=== PATIENT | female | born 1935 | race Caucasian/White ===

== ENCOUNTER 2017-07-26 17:53 | Observation (INO) | payer MEDICARE, OTHER ==
[~2017-07-26] VITALS: Ht 165.1 cm; Wt 66.9 kg
[~2017-07-26 17:53] MED LIST: CALC0.5C PO; CIMZ200K SQ; GALA24CA PO; GLIP10TA6 PO; LANTUS2P SQ; MEMA1TAB2 PO; METO5TAB PO; SACC1CAP3 PO; TRAD5TAB PO; TRAZ50TA12 PO; VITA2000 PO
[2017-07-26] MEDS ORDERED: ONDANSETRON HCL 4 MG/2 ML VIAL IVP PRN (18:15)
[2017-07-26] MEDS ORDERED: NALOXONE HCL 0.4 MG/ML AMP IV PUSH PRN (18:15)
[2017-07-26] MEDS ORDERED: ACETAMINOPHEN 325 MG TAB PO PRN ×2 (18:15)
[2017-07-26] MEDS ORDERED: SODIUM CHLORIDE 0.9% FLUSH 10 ML FLUSH IV FLUSH PRN (18:15)
[2017-07-26 20:00] VITALS: BP 119/57; PULSE 83; RESP 20; TEMP 96.7; O2SAT 98
[2017-07-26] MEDS: DOCUSATE SODIUM 50 MG/SENNA 8.6 MG TAB PO SCH (21:00)
[2017-07-26] MEDS ORDERED: GLUCAGON 1 MG/ML VIAL OTHER PRN (22:00)
[2017-07-26] MEDS ORDERED: DEXTROSE 50% IN WATER 50 ML VIAL(D50) IV PUSH PRN (22:00)
[2017-07-27] VITALS (7 sets, daily range): BP systolic 112–129; BP diastolic 51–66; PULSE 80–97; RESP 16–20; TEMP 97.4–98.5; O2SAT 95–99
[2017-07-27] MEDS: SODIUM CHLORIDE 0.9% FLUSH 10 ML FLUSH IV FLUSH SCH ×3 (00:39→22:02)
[2017-07-27] MEDS: SODIUM CHLOR 0.9% 1000 ML INJ 1,000 ML IV SCH ×3 (00:39→15:00)
[2017-07-27] MEDS ORDERED: traZODone HCL 50 MG TAB PO ONE (02:00)
[2017-07-27] MEDS: DOCUSATE SODIUM 50 MG/SENNA 8.6 MG TAB PO SCH ×2 (07:53→22:00)
[2017-07-27] MEDS: INSULIN ASPART SUPPLEMENTAL SCALE SQ SCH ×4 (07:53→21:00)
[2017-07-27 08:25] LABS: AUTOMATED NEUTROPHIL # 2.2 TH/MM3 (1.8-7.7); BASOPHIL % 0.7 % (0.0-2.0); EOSINOPHIL # 0.2 TH/MM3 (0-0.4); EOSINOPHIL % 3.2 % (0.0-4.0); HEMATOCRIT 32.3 % (35.0-46.0); HEMOGLOBIN 10.8 GM/DL (11.6-15.3); LYMPH % 53.5 % (9.0-44.0); LYMPHOCYTE # 3.5 TH/MM3 (1.0-4.8); MEAN CELL VOLUME 86.9 FL (80.0-100.0); MEAN CORPUSCULAR HEMOGLOBIN 28.9 PG (27.0-34.0); MEAN CORPUSCULAR HGB CONC 33.3 % (32.0-36.0); MEAN PLATELET VOLUME 10.1 FL (7.0-11.0); MONO % 8.3 % (0.0-8.0); MONOCYTE # 0.5 TH/MM3 (0-0.9); NEUT % 34.3 % (16.0-70.0); PLATELET COUNT 224 TH/MM3 (150-450); RED BLOOD COUNT 3.71 MIL/MM3 (4.00-5.30); RED CELL DISTRIBUTION WIDTH 13.4 % (11.6-17.2); WHITE BLOOD COUNT 6.4 TH/MM3 (4.0-11.0)
[2017-07-27 08:36] LABS: CHLORIDE 104 MEQ/L (98-107); SODIUM (NA) 135 MEQ/L (136-145)
[2017-07-27 08:42] LABS: CALCIUM 8.6 MG/DL (8.5-10.1)
[2017-07-27 08:43] LABS: ALBUMIN 3.2 GM/DL (3.4-5.0); BICARBONATE 25.3 MEQ/L (21.0-32.0); BLOOD UREA NITROGEN 28 MG/DL (7-18); GLUCOSE,RANDOM 110 MG/DL (74-106)
[2017-07-27 08:46] LABS: ALT (GPT) 18 U/L (10-53); AST (GOT) 15 U/L (15-37); GLOMERULAR FILTRATION RATE 33 ML/MIN (>89)
[2017-07-27 08:48] LABS: TOTAL PROTEIN 7.1 GM/DL (6.4-8.2)
[2017-07-27 08:49] LABS: ALKALINE PHOSPHATASE 72 U/L (45-117)
[2017-07-27] MEDS ORDERED: PILL SPLITTER OTHER PRN (09:00)
[2017-07-27] MEDS ORDERED: NON-FORMULARY DRUG (Saccharomyces Boulardii (Probiotic) 250 MG) PO SCH (09:00)
--- NOTE | 2017-07-27 09:22 | HHI.HP ---
[facility] Physician No Primary Care Physician Admission Diagnosis Diagnoses: Chief Complaint: Weakness Travel History International Travel<30 Days: No Contact w/Intl Traveler <30 Da: No History of Present Illness The patient is an 82-year-old female with a past medical history of Crohn's disease and dementia who presents to the hospital for evaluation of generalized weakness. For the last 2 weeks she has been having weakness and her reportedly stated that his been unable to take care of her since she has been very weak, unable to move, as well as having nausea and vomiting and unable to keep anything down. He has been trying to give her supplements but she reportedly refuses to take them. Patient also has been refusing to take her medications on time and her is worried that he is unable to take good care of her. No fall or trauma, no chest pain or shortness of breath. The patient states that she does not use a walker. She currently denies any symptoms. She does say she is forgetful and is not sure why she is here in the hospital. She says that she has diarrhea but that is at baseline secondary to her Crohn's disease. She has been eating while in the hospital. She has been ambulating without difficulty. No acute concerns from nursing. Review of Systems Except as stated in HPI: all other systems reviewed are Neg Past Family Social History Past Medical History Diabetes Crohn's disease Dementia Past Surgical History Colon resection Cholecystectomy Hysterectomy Tonsillectomy Allergies: Coded Allergies: No Known Allergies (Unverified , 07/26/17) Family History The patient denies pertinent family history. Social History The patient does not smoke or drink. Physical Exam Vital Signs Vital Signs Date Time Temp Pulse Resp B/P (MAP) Pulse Ox O2 Delivery O2 Flow Rate FiO2 07/27/17 00:00 97.7 85 20 114/59 (77) 96 07/26/17 20:00 96.7 83 20 119/57 (77) 98 Physical Exam GENERAL: This is a well-nourished, well-developed patient, in no apparent distress. SKIN: No rashes, ecchymoses or lesions. Cool and dry. HEAD: Atraumatic. Normocephalic. No temporal or scalp tenderness. EYES: Pupils equal round and reactive. Extraocular motions intact. No scleral icterus. No injection or drainage. ENT: Nose without bleeding, purulent drainage or septal hematoma. Throat without erythema, tonsillar hypertrophy or exudate. Uvula midline. Airway patent. NECK: Trachea midline. No JVD or lymphadenopathy. Supple, nontender, no meningeal signs. CARDIOVASCULAR: Regular rate and rhythm without murmurs, gallops, or rubs. RESPIRATORY: Clear to auscultation. Breath sounds equal bilaterally. No wheezes , rales, or rhonchi. GASTROINTESTINAL: Abdomen soft, non-tender, nondistended. No hepato-splenomegaly , or palpable masses. No guarding. MUSCULOSKELETAL: Extremities without clubbing, cyanosis, or edema. No joint tenderness, effusion, or edema noted. NEUROLOGICAL: Awake and alert. Cranial nerves II through XII intact. Some confusion. Motor and sensory grossly within normal limits. Five out of 5 muscle strength in all muscle groups. Normal speech. Laboratory Laboratory Tests Test 07/27/17 06:30 White Blood Count 6.4 Red Blood Count 3.71 Hemoglobin 10.8 Hematocrit 32.3 Mean Corpuscular Volume 86.9 Mean Corpuscular Hemoglobin 28.9 Mean Corpuscular Hemoglobin Concent 33.3 Red Cell Distribution Width 13.4 Platelet Count 224 Mean Platelet Volume 10.1 Neutrophils (%) (Auto) 34.3 Lymphocytes (%) (Auto) 53.5 Monocytes (%) (Auto) 8.3 Eosinophils (%) (Auto) 3.2 Basophils (%) (Auto) 0.7 Neutrophils # (Auto) 2.2 Lymphocytes # (Auto) 3.5 Monocytes # (Auto) 0.5 Eosinophils # (Auto) 0.2 Basophils # (Auto) 0.0 CBC Comment DIFF FINAL Differential Comment Blood Urea Nitrogen 28 Creatinine 1.50 Random Glucose 110 Total Protein 7.1 Albumin 3.2 Calcium Level 8.6 Alkaline Phosphatase 72 Aspartate Amino Transf (AST/SGOT) 15 Alanine Aminotransferase (ALT/SGPT) 18 Total Bilirubin 1.0 Sodium Level 135 Potassium Level 3.7 Chloride Level 104 Carbon Dioxide Level 25.3 Anion Gap 6 Estimat Glomerular Filtration Rate 33 Result Diagram: 07/27/1730 07/27/1730 Caprini VTE Risk Assessment Caprini VTE Risk Assessment: Mod/High Risk (score >= 2) Caprini Risk Assessment Model Point Value = 1 Point Value = 2 Point Value = 3 Point Value = 5 Age 41-60 Minor surgery BMI > 25 kg/m2 Swollen legs Varicose veins or History of unexplained or recurrent spontaneous Oral contraceptives or hormone replacement Sepsis (< 1 month) Serious lung disease, including pneumonia (< 1 month) Abnormal pulmonary function Acute myocardial infarction Congestive heart failure (< 1 month) History of inflammatory bowel disease Medical patient at bed rest Age 61-74 Arthroscopic surgery Major open surgery (> 45 min) Laparoscopic surgery (> 45 min) Malignancy Confined to bed (> 72 hours) Immobilizing plaster cast Central venous access Age >= 75 History of VTE Family history of VTE Factor V Leiden Prothrombin [id number] Lupus anticoagulant Anticardiolipin antibodies Elevated serum homocysteine Heparin-induced thrombocytopenia Other congenital or acquired thrombophilia Stroke (< 1 month) Elective arthroplasty Hip, pelvis, or leg fracture Acute spinal cord injury (< 1 month) Prophylaxis Regimen Total Risk Factor Score Risk Level Prophylaxis Regimen 0-1 Low Early ambulation 2 Moderate Order ONE of the following: *Sequential Compression Device (SCD) *Heparin 5000 units SQ BID 3-4 Higher Order ONE of the following medications: *Heparin 5000 units SQ TID *Enoxaparin/Lovenox 40 mg SQ daily (WT < 150 kg, CrCl > 30 mL/min) *Enoxaparin/Lovenox 30 mg SQ daily (WT < 150 kg, CrCl > 10-29 mL/min) *Enoxaparin/Lovenox 30 mg SQ BID (WT < 150 kg, CrCl > 30 mL/min) AND/OR *Sequential Compression Device (SCD) 5 or more Highest Order ONE of the following medications: *Heparin 5000 units SQ TID (Preferred with Epidurals) *Enoxaparin/Lovenox 40 mg SQ daily (WT < 150 kg, CrCl > 30 mL/min) *Enoxaparin/Lovenox 30 mg SQ daily (WT < 150 kg, CrCl > 10-29 mL/min) *Enoxaparin/Lovenox 30 mg SQ BID (WT < 150 kg, CrCl > 30 mL/min) AND *Sequential Compression Device (SCD) Assessment and Plan Assessment and Plan Weakness The patient reportedly has been weak for the past couple of weeks and has not been eating well. In the hospital she is ambulating well and eating. She denies any bothersome symptoms. - PT/ OT demondals pending. - case management consult requested. - dietary consult for reported failure to thrive. - fall precautions. Diarrhea Chronic, secondary to Crohn's disease. Currently at baseline. - Continue outpatient regimen. Renal insufficiency Unsure of baseline. - Continue IV fluids and avoid nephrotoxins. Anemia Unsure of baseline. - Follow CBC. DM Chronic. - continue long acting insulin with a sliding scale. PPx: SCDs Discussed Condition With Pt, pt's nurse Hosea Brito DO July 27, 2017 09:22
[2017-07-27] MEDS: INSULIN DETEMIR 100 UNITS/ML VIAL SQ SCH (09:53)
[2017-07-27] MEDS: CHOLECALCIFEROL (VIT D3) 1000 UNIT TAB PO SCH (09:53)
[2017-07-27] MEDS: MEMANTINE HCL 10 MG TAB PO SCH ×2 (09:53→22:01)
[2017-07-27] MEDS: GALANTAMINE HYDROBROMIDE 4 MG TAB PO SCH ×2 (10:43→22:01)
[2017-07-27] MEDS: METOCLOPRAMIDE HCL 10 MG TAB PO SCH ×2 (12:56→16:29)
[2017-07-27] MEDS ORDERED: traZODone HCL 50 MG TAB PO SCH (21:00)
[2017-07-28] VITALS: BP 111/62; PULSE 80; RESP 20; TEMP 97.8; O2SAT 98
[2017-07-28 07:36] VITALS: BP 119/59; PULSE 78; RESP 19; TEMP 97.8; O2SAT 96
[2017-07-28] MEDS: INSULIN ASPART SUPPLEMENTAL SCALE SQ SCH ×2 (07:39→12:00)
[2017-07-28] MEDS: SODIUM CHLORIDE 0.9% FLUSH 10 ML FLUSH IV FLUSH SCH (09:00)
[2017-07-28] MEDS: DOCUSATE SODIUM 50 MG/SENNA 8.6 MG TAB PO SCH (09:00)
[2017-07-28] MEDS: METOCLOPRAMIDE HCL 10 MG TAB PO SCH ×2 (10:49→12:00)
[2017-07-28] MEDS: INSULIN DETEMIR 100 UNITS/ML VIAL SQ SCH (10:49)
[2017-07-28 10:50] LABS: AUTOMATED NEUTROPHIL # 2.9 TH/MM3 (1.8-7.7); BASOPHIL # 0.3 TH/MM3 (0-0.2); BASOPHIL % 3.4 % (0.0-2.0); EOSINOPHIL # 0.2 TH/MM3 (0-0.4); EOSINOPHIL % 2.9 % (0.0-4.0); HEMATOCRIT 34.4 % (35.0-46.0); HEMOGLOBIN 11.3 GM/DL (11.6-15.3); LYMPH % 48.5 % (9.0-44.0); LYMPHOCYTE # 3.6 TH/MM3 (1.0-4.8); MEAN CELL VOLUME 88.8 FL (80.0-100.0); MEAN CORPUSCULAR HEMOGLOBIN 29.1 PG (27.0-34.0); MEAN CORPUSCULAR HGB CONC 32.8 % (32.0-36.0); MEAN PLATELET VOLUME 9.2 FL (7.0-11.0); MONO % 6.3 % (0.0-8.0); MONOCYTE # 0.5 TH/MM3 (0-0.9); NEUT % 38.9 % (16.0-70.0); PLATELET COUNT 231 TH/MM3 (150-450); RED BLOOD COUNT 3.88 MIL/MM3 (4.00-5.30); RED CELL DISTRIBUTION WIDTH 13.5 % (11.6-17.2); WHITE BLOOD COUNT 7.5 TH/MM3 (4.0-11.0)
[2017-07-28] MEDS: CHOLECALCIFEROL (VIT D3) 1000 UNIT TAB PO SCH (10:50)
[2017-07-28] MEDS: MEMANTINE HCL 10 MG TAB PO SCH (10:51)
[2017-07-28] MEDS: GALANTAMINE HYDROBROMIDE 4 MG TAB PO SCH (10:51)
[2017-07-28 11:23] LABS: CHLORIDE 111 MEQ/L (98-107); SODIUM (NA) 140 MEQ/L (136-145)
[2017-07-28 11:29] LABS: ALBUMIN 3.3 GM/DL (3.4-5.0); BICARBONATE 21.6 MEQ/L (21.0-32.0); BLOOD UREA NITROGEN 20 MG/DL (7-18); GLUCOSE,RANDOM 197 MG/DL (74-106)
[2017-07-28 11:32] LABS: ALT (GPT) 19 U/L (10-53); AST (GOT) 15 U/L (15-37); GLOMERULAR FILTRATION RATE 36 ML/MIN (>89)
[2017-07-28 11:33] LABS: TOTAL BILIRUBIN ADULT 0.7 MG/DL (0.2-1.0); TOTAL PROTEIN 7.3 GM/DL (6.4-8.2)
[2017-07-28 11:35] LABS: ALKALINE PHOSPHATASE 71 U/L (45-117)
--- NOTE | 2017-07-28 11:39 | HHI.DCPOC ---
Discharge Care Plan Diagnosis: (1) Renal insufficiency (2) Crohns disease (3) Dementia Goals to Promote Your Health * To prevent worsening of your condition and complications * To maintain your health at the optimal level Directions to Meet Your Goals Take your medications as prescribed Follow your dietary instruction Follow activity as directed Keep your appointments as scheduled Take your immunizations and boosters as scheduled If your symptoms worsen call your PCP, if no PCP go to Urgent Care Center or Emergency Room Smoking is Dangerous to Your Health. Avoid second hand smoke Call the 24-hour hour crisis hotline for domestic abuse at Hosea Brito DO July 28, 2017 11:39
--- NOTE | 2017-07-28 11:40 | HHI.FF ---
Face to Face Verification Diagnosis: (1) Crohns disease (2) Dementia (3) Renal insufficiency Physical Therapy Order: Evaluate and Treat, Improve ambulation, Strength and gait training Occupational Therapy Order: Evaluate and Treat, Improve ADL, Gross motor coordination, Fine motor coordination Home Health Nursing Order: Medical education Signs/symptoms of disease process Diabetic education Medication education-adverse effect Nursing assessment with vital signs I have seen patient Olivia Springer on 07/28/17. My clinical findings support the need for the requested home health care services because: Deconditioned w/ increased weakness Med compliance is questionable Limited ability to care for self Need for psychosocial assistance Impaired cognition/judgement High risk of falls I certify that my clinical findings support that this patient is homebound because: Impaired cognitive ability/safety Unsteady gait/balance Unsafe to leave home unassisted Need for psychosocial assistance Hosea Brito DO July 28, 2017 11:40
--- NOTE | 2017-07-28 11:44 | HHI.PR ---
Subjective Remarks The patient was feeling well. She had no acute complaints. She denied diarrhea. She said she was feeling better. She had no problem eating her breakfast. Discussed with Occupational Therapy and nursing. Objective Vitals Vital Signs Date Time Temp Pulse Resp B/P (MAP) Pulse Ox O2 Delivery O2 Flow Rate FiO2 07/28/17 07:36 97.8 78 19 119/59 (79) 96 07/28/17 00:00 97.8 80 20 111/62 (78) 98 07/27/17 20:00 97.9 97 20 125/66 (85) 99 07/27/17 17:30 16 07/27/17 16:00 97.4 84 18 112/51 (71) 95 07/27/17 12:59 17 07/27/17 12:00 97.9 84 17 120/66 (84) 98 I/O 07/27/17 07/27/17 07/27/17 07/28/17 07/28/17 07/28/17 07:00 15:00 23:00 07:00 15:00 23:00 Intake Total 120 ml 1320 ml 240 ml 120 ml Balance 120 ml 1320 ml 240 ml 120 ml Intake Oral 120 ml 1320 ml 240 ml 120 ml # Voids 3 6 3 # Bowel Movements 3 4 3 Result Diagram: 07/28/17 1045 07/28/17 1045 Objective Remarks GENERAL: This is a well-nourished, well-developed patient, in no apparent distress. SKIN: No rashes, ecchymoses or lesions. Cool and dry. HEAD: Atraumatic. Normocephalic. No temporal or scalp tenderness. EYES: Pupils equal round and reactive. Extraocular motions intact. No scleral icterus. No injection or drainage. ENT: Nose without bleeding, purulent drainage or septal hematoma. Throat without erythema, tonsillar hypertrophy or exudate. Uvula midline. Airway patent. NECK: Trachea midline. No JVD or lymphadenopathy. Supple, nontender, no meningeal signs. CARDIOVASCULAR: Regular rate and rhythm without murmurs, gallops, or rubs. RESPIRATORY: Clear to auscultation. Breath sounds equal bilaterally. No wheezes , rales, or rhonchi. GASTROINTESTINAL: Abdomen soft, non-tender, nondistended. No hepato-splenomegaly , or palpable masses. No guarding. MUSCULOSKELETAL: Extremities without clubbing, cyanosis, or edema. No joint tenderness, effusion, or edema noted. NEUROLOGICAL: Awake and alert. Cranial nerves II through XII intact. Some confusion. Motor and sensory grossly within normal limits. Five out of 5 muscle strength in all muscle groups. Normal speech. A/P Assessment and Plan Weakness The patient reportedly has been weak for the past couple of weeks and has not been eating well. In the hospital she is ambulating well and eating. She denies any bothersome symptoms. - PT/ OT. - case management consulted. Arrange for d/c with [facility]. - dietary consult for reported failure to thrive. - fall precautions. Diarrhea Chronic, secondary to Crohn's disease. Currently at baseline. - Continue outpatient regimen. Renal insufficiency Unsure of baseline. May have chronic component s/t diabetes. - Continue IV fluids and avoid nephrotoxins. Improving. - outpt follow-up with nephrology. Anemia Unsure of baseline. - Follow CBC. Improving. DM Chronic. - continue long acting insulin with a sliding scale. PPx: SCDs Discharge Planning D/c home with [facility] Hosea Brito DO July 28, 2017 11:44
[2017-07-28 11:46] VITALS: BP 123/60; PULSE 89; RESP 19; TEMP 98.4; O2SAT 97
[2017-07-28 16:00] VITALS: BP 127/61; PULSE 74; RESP 19; TEMP 96.9; O2SAT 95
== END 2017-07-28 18:00 | disposition home or self-care (01) ==
LOC: PHEDDLT 17:53 → PH3A 20:50
PROVIDERS: ADMIT Hospitalist; ATTEND Hospitalist
DX: N28.9 Disorder of kidney and ureter, unspecified (principal); K50.90 Crohn's disease, unspecified, without complications; F03.90 Unspecified dementia, unspecified severity, without behavioral disturbance, psychotic disturbance, mood disturbance, and anxiety; R53.1 Weakness; D64.9 Anemia, unspecified; E11.9 Type 2 diabetes mellitus without complications; Z79.4 Long term (current) use of insulin; Z90.710 Acquired absence of both cervix and uterus
CPT/HCPCS: 71045; 74176; 80053; 82948; 83690; 84484; 85025; 85610; 93005; 96361; 96372; 96374; 97163; 97166; 97535; 99285; G0378; G8987; G8988; J1815; J2405; J7030